=== PATIENT | female | born 1970 | race Caucasian/White ===

== ENCOUNTER 2018-02-02 17:00 | Emergency (ER) | payer OTHER ==
[~2018-02-02] VITALS: Ht 160 cm; Wt 135.6 kg
--- NOTE | 2018-02-02 18:04 | ED UPPER/LOWER EXTREMITY COMPL ---
History of Present Illness General Chief Complaint: General Adult Stated Complaint: SENT BY PMD FOR ELEVATED D-DIMER Source: patient, family Exam Limitations: no limitations Vital Signs & Intake/Output Vital Signs & Intake/Output Vital Signs Date Time Temp Pulse Resp B/P B/P Pulse O2 O2 Flow FiO2 Mean Ox Delivery Rate 02/02 193 98.3 91 24 124/76 96 Room Air 02/02 1846 Room Air 02/02 1707 99.2 102 18 165/83 98 Room Air Allergies Coded Allergies: No Known Allergies (02/02/18) Triage Note: RECEIVED 47 YO FEMALE SENT BY DR ESCAMILLA FOR ELEVATED D-DIMER. PT C/O L CALF ACHING DULL PAIN X 1 1/2 WEEKS. PT ALSO REPORTS BILATERAL ANKLE SWELLING X 2 WEEKS WITH SOME SOB X 2 WEEKS AND TONGUE SWELLING X 2 WEEKS Triage Nurses Notes Reviewed? yes HPI: 47F PMH T2DM, with an ongoing diagnosis of a rheumatological disorder (her ui software developer thinks she has a spondylosis, possibly psoriatic arthritis without the psoriasis), sent in by her PCP for an elevated D-dimer. She had complained of left calf swelling and pain for the past week and her MD chuckie a D- dimer which was positive, though the patient is unsure of the value. She reports bilateral leg swelling, though her left calf is significantly more swollen than her right with left calf tendnerness. Non-smoker, no OCP, no immobilization or travel. Her mother of a PE during childbirth and her grandmother had a DVT. She denies chest pain, palpitations, SOB, lightheadedness, n/v, abdominal pain, diarrhea, dysuria. Past History Travel History Traveled to [place] past 21 day No Medical History Any Pertinent Medical History? see below for history Neurological: NONE EENT: NONE Cardiovascular: NONE Respiratory: NONE Gastrointestinal: NONE Hepatic: NONE Renal: NONE Musculoskeletal: NONE Psychiatric: NONE Endocrine: NIDDM Blood Disorders: NONE Cancer(s): NONE Surgical History Surgical History: non-contributory Psychosocial History What is your primary language Croatian Tobacco Use: Quit >30 days ago Family History Hx Contributory? No Review of Systems Review of Systems Constitutional: Reports: no symptoms. EENTM: Reports: no symptoms. Respiratory: Reports: no symptoms. Cardiovascular: Reports: no symptoms. Gastrointestinal/Abdominal: Reports: no symptoms. Genitourinary: Reports: no symptoms. Musculoskeletal: Reports: no symptoms. Skin: Reports: no symptoms. Neurological/Psychological: Reports: no symptoms. Hematologic/Endocrine: Reports: no symptoms. Immunological: Reports: no symptoms. All Other Systems: Reviewed and Negative Physical Exam Physical Exam General Appearance: well developed/nourished, mild distress Head: atraumatic Eyes: Bilateral: PERRL, EOMI. Ears, Nose, Throat: normal pharynx, normal ENT inspection, hearing grossly normal Neck: normal inspection, supple Cardiovascular/Respiratory: regular rate/rhythm Back: normal inspection Leg Left: significant calf swelling and tenderness, no erythema, pulses intact Leg Right: mild foot swelling, no calf swelling, erythema, or tenderness Skin: intact, normal color, warm/dry Lymphatic: no anterior cervical adrián Progress Differential Diagnosis: arterial insufficiency, cellulitis, CHF, compartment syndrome, contusion, dislocation, DVT, fracture, gout, septic arthritis, sprain, tendon injury Plan of Care: Orders Procedure Date/time Status HUMAN BETA HCG SCREEN 02/02 1715 Complete COMPREHENSIVE METABOLIC PANEL 02/02 1715 Complete CBC WITHOUT DIFFERENTIAL 02/02 1715 Complete EKG 02/02 1715 Active Current Medications Sig/[place] Start time Last Medication Dose Stop Time Status Admin Apixaban 10 MG ONCE ONE 02/02 1945 UNVr (Eliquis) 02/02 1946 Laboratory Tests 02/02/18 1748: Anion Gap 14, Estimated GFR > 60, BUN/Creatinine Ratio 23.3, Glucose 234 H, Calcium 9.0, Total Bilirubin 0.4, AST 19, ALT 21, Alkaline Phosphatase 82, Total Protein 7.6, Albumin 3.9, Globulin 3.7, Albumin/Globulin Ratio 1.1, Total Beta HCG NEGATIVE, CBC w Diff NO MAN DIFF REQ, RBC 4.17 L, MCV 91.0, MCH 29.4, MCHC 32.3 L, RDW 15.5 H, MPV 6.8 L, Gran % 86.3 H, Lymphocytes % 9.8 L, Monocytes % 3.7, Eosinophils % 0.1, Basophils % 0.1, Absolute Granulocytes 10.3 H, Absolute Lymphocytes 1.2, Absolute Monocytes 0.4, Absolute Eosinophils 0, Absolute Basophils 0 CTA negative. Given Eliquis once and will return tomorrow morning for LE doppler. Diagnostic Imaging: Viewed by Me: CT Scan. Discussed w/RAD: CT Scan. Radiology Impression: PATIENT: MEET AGUAYO PRESENT AGE: 47 PATIENT ACCOUNT NO: [id number] : 69 LOCATION: [facility] ORDERING PHYSICIAN: Schuyler Prakash MD SERVICE DATE: 02/02/18 EXAM TYPE: CAT - CTA CHEST-PULMONARY EMBOLISM EXAMINATION: CT ANGIOGRAM CHEST WITH AND WITHOUT CONTRAST (CT PULMONARY ANGIOGRAM FOR PE) CLINICAL INFORMATION: Left lower extremity swelling, elevated D-dimer. COMPARISON: None TECHNIQUE: Prior to contrast administration, noncontrast localization images were obtained. Subsequently, multidetector volumetric imaging was performed from the thoracic inlet to below the diaphragms following the administration of 95 mL Optiray 320 intravenous contrast. No contrast reaction reported. Sagittal, coronal, and MIP oblique sagittal reformatted images were obtained on the CT workstation, uploaded to PACS, and reviewed. Total exam dose-length product 587 mGy-cm. FINDINGS: QUALITY OF STUDY/CONTRAST BOLUS: Fair. PULMONARY ARTERIES: No central or segmental pulmonary emboli. THORACIC AORTA: No aneurysm or dissection. LUNG: No consolidation suspicious for pneumonia or pulmonary edema. No suspicious pulmonary nodule. Subsegmental atelectasis in the lingula. PLEURA: No pleural effusion or pneumothorax. MEDIASTINUM: Normal heart size. No pericardial effusion. No hilar or mediastinal lymphadenopathy. No evidence of septal bowing or right heart strain. CHEST WALL/AXILLA: No axillary or internal mammary lymphadenopathy. OSSEOUS STRUCTURES: No acute or suspicious osseous abnormality. Small posterior osteophyte at T7 causing mild mass effect on the ventral thecal sac. UPPER ABDOMEN: Suspect hepatic steatosis. Cholecystectomy clips. No reflux of contrast into the hepatic veins to suggest elevated right heart pressures. IMPRESSION: No evidence of pulmonary embolism. VTE: Negative. DICTATED BY: Ranjan George MD DATE/TIME DICTATED:02/02/181910 PATIENT COORDINATOR:LIZETH DATE/TIME TRANSCRIBED:02/02/181910 Initial ED EKG: normal sinus rhythm, no ST T wave changes Departure Departure Disposition: HOME OR SELF CARE Condition: Stable Clinical Impression Primary Impression: Left leg swelling Referrals: Noemí Ashraf (PCP/Family) Additional Instructions: You can either make an appointment with radiology tomorrow morning using the form you were given, or come back to the ER so you can have an ultrasound of your leg. You can bleed more easily while on Eliquis. If you notice any new or worsening symptoms, return to ER. Departure Forms: Customer Survey General Discharge Information
[2018-02-02 18:14] LABS: ABSOLUTE BASOPHIL COUNT 0 /CUMM (0.0-0.2); ABSOLUTE EOSINOPHIL COUNT 0 /CUMM (0.0-0.7); ABSOLUTE GRANULOCYTE CT 10.3 /CUMM (1.4-6.5); ABSOLUTE LYMPH COUNT 1.2 /CUMM (1.2-3.4); ABSOLUTE MONOCYTE COUNT 0.4 /CUMM (0.10-0.60); BASOPHIL % 0.1 % (0.0-2.0); EOSINOPHIL % 0.1 % (0-5); HEMATOCRIT 37.9 % (37-47); MEAN CORPUSCULAR HGB 29.4 PG (27.0-31.0); MEAN CORPUSCULAR HGB CONC 32.3 G/DL (33.0-37.0); MEAN PLATELET VOLUME 6.8 FL (7.4-10.4); PLATELET COUNT 491 /CUMM (130-400); RBC DISTRIBUTION WIDTH 15.5 % (11.5-14.5); RED BLOOD CELL CT 4.17 /CUMM (4.20-5.40); WHITE BLOOD CELL COUNT 11.9 /CUMM (4.8-10.8)
[2018-02-02 18:32] LABS: GRANULOCYTE % 86.3 % (42.2-75.2)
--- NOTE | 2018-02-02 19:29 | CT SCAN REPORT ---
EXAMINATION: CT ANGIOGRAM CHEST WITH AND WITHOUT CONTRAST (CT PULMONARY ANGIOGRAM FOR PE) CLINICAL INFORMATION: Left lower extremity swelling, elevated D-dimer. COMPARISON: None TECHNIQUE: Prior to contrast administration, noncontrast localization images were obtained. Subsequently, multidetector volumetric imaging was performed from the thoracic inlet to below the diaphragms following the administration of 95 mL Optiray 320 intravenous contrast. No contrast reaction reported. Sagittal, coronal, and MIP oblique sagittal reformatted images were obtained on the CT workstation, uploaded to PACS, and reviewed. Total exam dose-length product 587 mGy-cm. FINDINGS: QUALITY OF STUDY/CONTRAST BOLUS: Fair. PULMONARY ARTERIES: No central or segmental pulmonary emboli. THORACIC AORTA: No aneurysm or dissection. LUNG: No consolidation suspicious for pneumonia or pulmonary edema. No suspicious pulmonary nodule. Subsegmental atelectasis in the lingula. PLEURA: No pleural effusion or pneumothorax. MEDIASTINUM: Normal heart size. No pericardial effusion. No hilar or mediastinal lymphadenopathy. No evidence of septal bowing or right heart strain. CHEST WALL/AXILLA: No axillary or internal mammary lymphadenopathy. OSSEOUS STRUCTURES: No acute or suspicious osseous abnormality. Small posterior osteophyte at T7 causing mild mass effect on the ventral thecal sac. UPPER ABDOMEN: Suspect hepatic steatosis. Cholecystectomy clips. No reflux of contrast into the hepatic veins to suggest elevated right heart pressures. IMPRESSION: No evidence of pulmonary embolism. VTE: Negative.
[2018-02-02 19:33] VITALS: BP 124/76
[2018-02-02] MEDS ORDERED: METHYLPREDNISOLO4 M2 PO (19:55)
[2018-02-02] MEDS ORDERED: FUROSEMIDE20 M1 PO (19:55)
[2018-02-02] MEDS ORDERED: ESCITALOPRAM OX20 MG PO (19:56)
== END 2018-02-02 19:56 ==
LOC: ERH 17:00
PROVIDERS: Internal Medicine
DX: M79.89 Other specified soft tissue disorders (principal)
CPT/HCPCS: 93005; 93010